=== PATIENT | female | born 1995 | race Asian ===

== ENCOUNTER 2018-09-10 05:24 | Emergency (ER) | payer OTHER ==
[2018-09-10] MEDS: ONDANSETRON 4MG/2ML VIAL (J2405) IV (06:20)
[2018-09-10] MEDS: NS 1,000 ML IV (06:20)
== END 2018-09-10 08:11 | disposition home or self-care (01) ==
LOC: M ED 05:24
DX: R11.2 Nausea with vomiting, unspecified (principal); Z79.899 Other long term (current) drug therapy
CPT/HCPCS: J2405

== ENCOUNTER 2018-12-08 11:47 | Emergency (ER) | payer OTHER ==
[~2018-12-08] VITALS: Ht 154.9 cm; Wt 59.1 kg
[2018-12-08 11:47] VITALS: BP 116/71
[~2018-12-08 11:47] MED LIST: ZOFR4TAB14 PO; ZYRTTAB8 PO
== END 2018-12-08 12:50 | disposition home or self-care (01) ==
LOC: M ED 11:47
DX: R19.7 Diarrhea, unspecified (principal)

== ENCOUNTER 2024-11-01 10:23 | Emergency (ER) | payer OTHER ==
[~2024-11-01] VITALS: Ht 154.9 cm; Wt 77.3 kg
[2024-11-01] MEDS ORDERED: TRAM50TA2 (10:30)
[2024-11-01] MEDS ORDERED: EPIN0.3I11 (10:30)
[2024-11-01] MEDS ORDERED: SERT25TA85 (10:30)
[2024-11-01] MEDS ORDERED: XOLA150I (10:30)
[2024-11-01 12:28] VITALS: BP 138/81; TEMP 97.4; O2SAT 99
== END 2024-11-01 12:37 | disposition home or self-care (01) ==
LOC: M ED 10:23
DX: S63.502A Unspecified sprain of left wrist, initial encounter (principal); X50.0XXA Overexertion from strenuous movement or load, initial encounter; Y92.009 Unspecified place in unspecified non-institutional (private) residence as the place of occurrence of the external cause; Y93.89 Activity, other specified; Y99.9 Unspecified external cause status; Z79.899 Other long term (current) drug therapy; Z91.013 Allergy to seafood

== ENCOUNTER 2025-08-11 00:16 | Emergency (ER) | payer OTHER ==
[~2025-08-11] VITALS: Ht 154.9 cm; Wt 72.8 kg
[~2025-08-11 00:16] MED LIST changes: +EPIN0.3I11; +SERT25TA85; +TRAM50TA2; +XOLA150I
[2025-08-11] MEDS: NS (Normal Saline) 0.9% 1,000 ML IV ONE (02:09)
[2025-08-11] MEDS: diphenhydrAMINE 50 MG/ML VIAL IV ONE (02:11)
[2025-08-11] MEDS: KETOROLAC 30 MG/ML 1 ML VIAL IV ONE (02:11)
[2025-08-11 04:07] VITALS: BP 125/59; TEMP 97.2; O2SAT 100
== END 2025-08-11 04:13 | disposition home or self-care (01) ==
LOC: M ED 00:16
DX: G43.909 Migraine, unspecified, not intractable, without status migrainosus (principal); Z79.899 Other long term (current) drug therapy; Z91.013 Allergy to seafood
CPT/HCPCS: 96361; 96374; 96375; 99283; J1200; J1885; J2765